=== PATIENT | male | born 1955 | race Caucasian/White ===

== ENCOUNTER 2016-12-20 13:41 | Outpatient (CLI) ==
--- NOTE | 2016-12-20 14:11 | DI ---
EXAM: Two views of the chest. History: Essential hypertension. Comparison: Chest radiograph 02/25/2008 Findings: Heart size is normal. No focal consolidation. No appreciable pleural fluid and no pneum othorax. No acute osseous abnormalities. Calcified granulomas again seen within the thorax. Impression: No acute cardiopulmonary process. Old granulomatous disease. No change compared to th e prior study.
== END 2016-12-20 13:42 | disposition home or self-care (01) ==
LOC: RAD 13:41
PROVIDERS: ATTEND Family Medicine
DX: I10 Essential (primary) hypertension (principal)
CPT/HCPCS: 93005; 93010

== ENCOUNTER 2017-03-28 14:35 | Outpatient (CLI) | END 2017-03-28 14:36 | disposition home or self-care (01) | LOC: CAR 14:35 | PROVIDERS: ATTEND Family Medicine | DX: D09.0 Carcinoma in situ of bladder (principal) | CPT/HCPCS: 93005; 93010 ==

== ENCOUNTER 2018-07-25 12:16 | Emergency (ER) ==
[2018-07-25 12:20] VITALS: BP 192/110; TEMP 97; BMI 36.6
--- NOTE | 2018-07-25 13:31 | CT ---
EXAM: CT ABDOMEN AND PELVIS HISTORY: Abdominal pain, concern for urolithiasis TECHNIQUE: CT abdomen and pelvis without intravenous contrast. Images were reconstructed using 3 mm section thickness. Reformations were prepared. COMPARISON: 03/04/2018 FINDINGS: No nephrolithiasis or hydronephrosis. No ureteral calculus or dilatation. There is a stable perinep hric fat stranding bilaterally. A few tiny cortical masses are stable and probably represent renal c ysts. The urinary bladder is mildly distended. There is moderate enlargement of the prostate. Within limits of this unenhanced exam, no focal hepatic lesion is seen. Splenic calcifications are p resent consistent with old granulomatous disease. Unremarkable gallbladder. Redemonstration of rela tive atrophy of the pancreatic tail without change. Normal adrenal glands. Moderate atherosclerotic disease is present. Small sliding hiatal hernia. Stomach is mildly distended with fluid and air. Normal appendix and general bowel gas pattern. No ascites. There is a fatty umbilical hernia with a transverse neck of 2.7 cm which is stable. The bones have degenerative disc disease of the lumbar s pine. Stable nonspecific sclerotic focus in the upper right acetabulum. Lung bases reveal chronic i nterstitial changes and multiple small nodules most of which are calcified appearing similar to that previously seen possibly related to old granulomatous disease. No pneumoperitoneum. IMPRESSION: 1. No evidence of urolithiasis or hydronephrosis. Prostate enlargement with mild urinary bladder di stension. Stable renal cysts. 2. Atherosclerosis. 3. Pancreatic tail atrophy is stable. 4. Tiny sliding hiatal hernia.. 5. Stomach is mildly distended with fluid and air. Consider ileus, gastroparesis or mild gastritis. 6. Stable fatty umbilical hernia.
--- NOTE | 2018-07-25 13:57 | ED.PDOC ---
General ED Provider: Dr. YANNA MUNOZ Chief Complaint: Urinary Problem Stated Complaint: unable to urinate or have a bowel movement x 1 day Time Seen by Physician: 12:20 (sammie with the nurse at all times ) Mode of Arrival: Walk-In Information Source: Patient Exam Limitations: No limitations Primary Care Provider: HUANG DAWKINS Nursing and Triage Documentation Reviewed and Agree: Yes Does patient meet sepsis criteria?: No System Inflammatory Response Syndrome: Not Applicable (he stated he has been unable) Sepsis Protocol: For patient's 13 years and over: Temp is 96.8 and below OR 101 and greater Pulse >90 BPM Resp >20/minute Acutely Altered Mental Status Are patient's symptoms suggestive of a new infection, such as: -Pneumonia -Skin, Soft Tissue -Endocarditis -UTI -Bone, Joint Infection -Implantable Device -Acute Abdominal Infection -Wound Infection -Meningitis -Blood Stream Catheter Infection -Unknown Review of Systems - Review Of Systems Constitutional: Reports: No symptoms Eyes: Reports: No symptoms Ears, Nose, Mouth, Throat: Reports: No symptoms Respiratory: Reports: No symptoms Cardiac: Reports: No symptoms GI: Reports: Constipated (for 1 week ) : Reports: Other (unable to void , c) Musculoskeletal: Reports: No symptoms Skin: Reports: No symptoms Neurological: Reports: No symptoms Endocrine: Reports: No symptoms Hematologic/Lymphatic: Reports: No symptoms All Other Systems: Reviewed and Negative Past Medical History - Past Medical History Previously Healthy: No Endocrine: Reports: DM 2, Hypothyroid Cardiovascular: Reports: Hypertension Respiratory: Reports: None Hematological: Reports: None Gastrointestinal: Reports: None Genitourinary: Reports: None Neuro/Psych: Reports: None Musculoskeletal: Reports: None Cancer: Reports: Other (bladder ) - Surgical History General Surgical History: Reports: None - Family History Family History: Reports: None - Social History Smoking Status: Former smoker Hx Substance Use: No Alcohol Screening: Occasionally Physical Exam - Physical Exam Appearance: Ill-appearing Eyes: PARESH, EOMI, Conjunctiva clear ENT: Ears normal, Nose normal, Oropharynx normal Respiratory: Airway patent, Breath sounds clear, Breath sounds equal, Respirations nonlabored Cardiovascular: RRR, Pulses normal, No rub, No murmur GI/: Soft, Nontender, No masses, Bowel sounds normal, No Organomegaly Musculoskeletal: Normal strength, ROM intact, No edema, No calf tenderness Skin: Warm, Dry, Normal color Neurological: Sensation intact, Motor intact, Reflexes intact, Cranial nerves intact, Alert, Oriented Psychiatric: Affect appropriate, Mood appropriate Re-Evaluation - Re-Evaluation Time of Re-Evaluation: 14:01 Status: Improved Vital Signs Stable: Yes Pain Level: 0 Appearance: NAD Lungs: Clear Skin: Warm and Dry Neuro: Alert and Oriented X3 CV: RRR Physician Notification - Case Discussed Physician Notified: pmd Time of Notification: 14:07 (instructed me to contact his urologist) Physician Notified: nancy Time of Notification: 14:08 (sSpoke to his NURSE PRACTITIONER STATED PT WILL BE SEEN 9 AM SATURDAY. CALLED BACK PMD AND NOTIFIED HIM OF THE UROLOGY OFFICE APPOINTMENT, PRESENT AT ALL TIME MISS DASH Ezequiel ) Critical Care Note - Critical Care Note Total Time (mins): 0 Course - Course Hematology/Chemistry: 07/25/18 12:43 07/25/18 12:43 Orders, Labs, Meds: Lab Review 07/25/18 07/25/18 12:43 12:43 WBC 16.89 H RBC 5.48 Hgb 14.6 Hct 41.9 L MCV 76.5 L MCH 26.6 L MCHC 34.8 RDW Coeff of Ginette 13.7 Plt Count 347 Immature Gran % (Auto) 0.5 Neut % (Auto) 77.8 Lymph % (Auto) 11.2 [place] % (Auto) 9.7 Eos % (Auto) 0.4 Baso % (Auto) 0.4 Immature Gran # (Auto) 0.1 Neut # (Auto) 13.2 H Lymph # (Auto) 1.9 [place] # (Auto) 1.6 Eos # (Auto) 0.1 Baso # (Auto) 0.1 Sodium 128.6 L Potassium 3.96 Chloride 90.1 L Carbon Dioxide 24.4 Anion Gap 18.06 BUN 8.0 L Creatinine 0.72 Estimated GFR (MDRD) 110.00 BUN/Creatinine Ratio 11.11 Glucose 105.6 Calcium 9.24 Total Bilirubin 0.77 AST 21.0 ALT 17.2 Alkaline Phosphatase 56.1 Total Protein 7.87 Albumin 4.49 Globulin 3.38 Albumin/Globulin Ratio 1.32 Orders Category Date Time Status Bladder Scan [ED BLADDER SCAN] .ONCE EMERGENCY 07/25/18 12:29 Active CBC W/ AUTO DIFF Stat LAB 07/25/18 12:43 Completed COMPREHENSIVE METABOLIC PANEL Stat LAB 07/25/18 12:43 Completed URINALYSIS C & S IF INDICATED Stat LAB 07/25/18 12:[address] ABD/PEL WO RENAL STONE PROT Stat RADS 07/25/18 12:29 Completed Vital Signs: Temp Pulse Resp BP Pulse Ox 07/25/18 12:17 97.0 F L 90 20 192/110 H 96 Departure - Departure Time of Disposition: 14:12 Disposition: HOME SELF-CARE Discharge Problem: Urinary symptoms Instructions: Hyponatremia (ED) Condition: Good Pt referred to PMD for follow-up: Yes IPMP verified?: No Additional Instructions: Please call your Family Physician as soon as possible to schedule a follow-up appointment.YOU MUST GO TO UROLOGIST OFFICE 9AM SATURDAY Allergies/Adverse Reactions: Allergies No Known Allergies Allergy (Unverified 07/25/18 12:20) Disposition Discussed With: Patient
== END 2018-07-25 15:04 | disposition home or self-care (01) ==
LOC: ED 12:16
DX: E87.1 Hypo-osmolality and hyponatremia (principal); R33.9 Retention of urine, unspecified; K59.00 Constipation, unspecified; E11.9 Type 2 diabetes mellitus without complications; E03.9 Hypothyroidism, unspecified; I10 Essential (primary) hypertension
CPT/HCPCS: 36415; 74176; 80053; 81001; 85025; 87086; 99283

== ENCOUNTER 2018-08-03 11:41 | Outpatient (CLI) | END 2018-08-03 12:00 | disposition short-term general hospital (02) | LOC: AMBL 11:41 | PROVIDERS: ATTEND Family Medicine | DX: R31.9 Hematuria, unspecified (principal); R33.9 Retention of urine, unspecified; R52 Pain, unspecified; R53.1 Weakness; E11.9 Type 2 diabetes mellitus without complications; I10 Essential (primary) hypertension; Z96.0 Presence of urogenital implants; Z85.51 Personal history of malignant neoplasm of bladder ==

== ENCOUNTER 2018-10-27 06:19 | Day surgery (SDC) ==
[2018-10-27] MEDS: AK-DILATE 10% OPTH SOL OP PRN ×4 (06:23→06:33)
[2018-10-27] MEDS: CYCLOGYL 2% OPTH OP PRN ×3 (06:23→06:33)
[2018-10-27] MEDS: OCUFEN 0.03% OPTH SOL OP PRN ×4 (06:23→10:00)
[2018-10-27] MEDS: TETRACAINE 0.5% UNIT-DOSE OP PRN ×4 (06:23→09:44)
[2018-10-27] MEDS ORDERED: BSS WITH EPINEPHRINE OP ONE (07:00)
[2018-10-27] MEDS ORDERED: DIAMOX PO STA (07:00)
[2018-10-27] MEDS ORDERED: OCUSOFT LID SCRUB PLUS TP PRN (07:00)
[2018-10-27 07:06] VITALS: TEMP 98.7
[2018-10-27] MEDS ORDERED: VERSED ONE (07:30)
[2018-10-27] MEDS ORDERED: SUBLIMAZE ONE (07:30)
[2018-10-27 12:25] VITALS: BP 131/78
[2018-10-27] MEDS ORDERED: BETADINE OPTH PREP OP PRN (14:39)
[2018-10-27] MEDS ORDERED: PRED FORTE 1% OP STA (14:46)
--- NOTE | 2018-10-28 09:32 | OP ---
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 POSTOPERATIVE DIAGNOSIS: SAME. OPERATION PHACOEMULSIFICATION ASPIRATION OF CATARACT RIGHT EYE. PLACEMENT OF POSTERIOR CHAMBER LENS. PHACO TIME 58.7 SECONDS AT 15.0% POWER. LENS MODEL TECMESFIN [id number]. DIOPTER +19.5D. TECHNIQUE: CLEAR CORNEA. ANESTHESIA: TOPICAL ANESTHESIA W/ANESTHESIA MONITORING. OPERATIVE REPORT: Topical anesthesia consisting of Tetracaine was applied to the cornea and Xylocaine Methyl Paraben free of MFP was injected intracamerally into the anterior chamber. The patient was then brought into the operating room , prepped and draped in the usual ophthalmic manner. A lid speculum was placed and the operating microscope was used. A paracentesis was made at the 3 o' clock position. A clear corneal incision was made just out to the limbus. The anterior chamber was entered just inside the clear cornea. Viscoelastic was injected into the anterior chamber. A capsulotomy was performed with a bent # 27 gauge needle. Phacoemulsification was then performed in the posterior chamber. After completion of the phacoemulsification, residual cortical material was aspirated with the irrigation-aspiration system. The posterior capsule was polished. Viscoelastic was injected into the anterior and posterior chambers to inflate the capsular bag. Lens were placed via an Unfolder system and stabilized in the bag. Viscoelastic was removed from the anterior chamber. The wound was checked for any leakage. The four sponges were removed from the fornix. Topical antibiotic steroid and nonsteroidal drops were also applied to the cornea. A Rosado shield was applied. The patient left the operating room in good condition without any complications. INTRAOPERATIVE MEDICATIONS: Xylocaine Methyl Paraben Free MPF MTDD
== END 2018-10-27 10:35 | disposition home or self-care (01) ==
LOC: SURG 06:19
PROVIDERS: ATTEND Ophthalmology
DX: H25.13 Age-related nuclear cataract, bilateral (principal); H25.013 Cortical age-related cataract, bilateral; H25.041 Posterior subcapsular polar age-related cataract, right eye; E11.9 Type 2 diabetes mellitus without complications